=== PATIENT | female | born 1980 | race Caucasian/White ===

== ENCOUNTER 2019-08-12 13:39 | Emergency (ER) | payer OTHER ==
[2019-08-12 14:07] VITALS: BP 111/60; PULSE 69; TEMP 98.1; BMI 27.3
[2019-08-12 14:51] LABS: EPI CELLS 2.8 /HPF (0-5/HPF); HYALINE CASTS 1 /lpf (0-8); URINE APPEARANCE CLEAR; URINE BACTERIA 241.4 /hpf (NEGATIVE); URINE BILIRUBIN NEGATIVE (NEGATIVE); URINE COLOR YELLOW; URINE GLUCOSE (UA) NEGATIVE (NEGATIVE); URINE KETONE 1+ (NEGATIVE); URINE LEUK ESTERASE 2+ (NEGATIVE); URINE NITRITE NEGATIVE (NEGATIVE); URINE PROTEIN NEGATIVE (NEGATIVE); URINE UROBILINOGEN 0.2 mg/dL (0.2-1.0); URINE WBC 11 /hpf (0-5)
[2019-08-12 14:54] LABS: URINE RBC 0-4 /hpf (0-4)
[2019-08-12] MEDS ORDERED: LIDOCAINE 5% TOPICAL PATCH TP ONE (15:00)
[2019-08-12] MEDS ORDERED: ACETAMINOPHEN 325 MG TABLET (FP) PO ONE (15:00)
--- NOTE | 2019-08-12 15:09 | PDOC ---
History of Present Illness - General Chief Complaint: Back Pain Stated Complaint: LOWER BACK PAIN 3M PRGT Time Seen by Provider: 08/12/19 14:46 History Source: Patient Exam Limitations: Clinical Condition - History of Present Illness Initial Comments: 08/12/19 15:04 Patient 13 weeks with no significant past medical history present with complaint of low back pain after housecleaning yesterday and decorating [place] tree in the house. Patient reported pain localized to lower mid back which started as mild pain yesterday has been worsening today. Patient did not take anything for pain. Denies numbness or tingling sensation, nausea or vomiting. Denies urinary frequency, burning with urination or dysuria or hematuria. Denies abdominal pain, vaginal bleeding or discharge. Denies any other symptoms Is this a multiple visit Asthma Patient?: No Timing/Duration: 24 hours Past History - Past Medical History Allergies/Adverse Reactions: Allergies Allergy/AdvReac Type Severity Reaction Status Date / Time No Known Allergies Allergy Verified 08/12/19 14:03 COPD: No - Immunization History Immunization Up to Date: Yes - Psycho Social/Smoking Cessation Hx Smoking History: Never smoked Have you smoked in the past 12 months: No Number of Cigarettes Smoked Daily: 0 Cigars Per Day: 0 Hx Alcohol Use: No Drug/Substance Use Hx: No Substance Use Type: None Review of Systems - Review of Systems Able to Perform ROS?: Yes Is the patient limited Gu[place]ian proficient: No Constitutional: No: Chills, Fever, Malaise, Weakness HEENTM: No: Symptoms Reported, See HPI, Eye Pain, Blurred Vision, Tearing, Recent change in vision, Double Vision, Cataracts, Ear Pain, Ocular Prothesis, Ear Discharge, Nose Pain, Nose Congestion, Tinnitus, Nose Bleeding, Hearing Loss , Throat Pain, Throat Swelling, Mouth Pain, Dental Problems, Difficulty Swallowing, Mouth Swelling, Other Respiratory: No: Symptoms reported, See HPI, Cough, Orthopnea, Shortness of Breath, SOB with Exertion, SOB at Rest, Stridor, Wheezing, Productive cough, Hemoptysis, Other Cardiac (ROS): No: Symptoms Reported, See HPI, Chest Pain, Edema, Irregular Heart Rate, Lightheadedness, Palpitations, Syncope, Chest Tightness, Other ABD/GI: No: Symptoms Reported, See HPI, Blood Streaked Bowels, Constipated, Diarrhea, Nausea, Poor Appetite, Vomiting, Abdominal cramping : No: Symptoms Reported, See HPI, Burning, Dysuria, Discharge, Frequency, Flank Pain, Hematuria, Urgency Musculoskeletal: Yes: Symptoms Reported, See HPI, Back Pain (lower back pain) Integumentary: No: Symptoms Reported Neurological: No: Symptoms reported, Numbness, Paresthesia, Tingling All Other Systems: Reviewed and Negative *Physical Exam - Vital Signs Last Vital Signs Temp Pulse Resp BP Pulse Ox 98.1 F 69 18 111/60 99 08/12/19 14:05 08/12/19 14:05 08/12/19 14:05 08/12/19 14:05 08/12/19 14:05 - Physical Exam General Appearance: Yes: Nourished, Appropriately Dressed. No: Apparent Distress HEENT: positive: [place], Normal ENT Inspection, Normal Voice, Pharynx Normal Neck: positive: Supple Respiratory/Chest: positive: Lungs Clear, Normal Breath Sounds. negative: Respiratory Distress, Accessory Muscle Use Cardiovascular: positive: Regular Rhythm, Regular Rate Gastrointestinal/Abdominal: positive: Normal Bowel Sounds Musculoskeletal: positive: Normal Inspection, Other (mild tenderness over lower lumbosacral of L5-S2. no radiculopathy). negative: CVA Tenderness Extremity: positive: Normal Inspection, Normal Range of Motion Integumentary: positive: Normal Color, Warm Neurologic: positive: Fully Oriented, Alert, Normal Mood/Affect, Normal Response ED Treatment Course - ADDITIONAL ORDERS Additional order review: Laboratory Results 08/12/19 14:15 Urine Color Yellow Urine Appearance Clear Urine pH 7.0 D Ur Specific [place] 1.013 Urine Protein Negative Urine Glucose (UA) Negative Urine Ketones 1+ H Urine Blood Negative Urine Nitrite Negative Urine Bilirubin Negative Urine Urobilinogen 0.2 Ur Leukocyte Esterase 2+ H Urine WBC (Auto) 11 Urine RBC (Auto) 0-4 Urine Casts (Auto) 1 U Epithel Cells (Auto) 2.8 Urine Bacteria (Auto) 241.4 Medical Decision Making - Medical Decision Making 08/12/19 15:05 Patient 13 weeks with no significant past medical history present with complaint of low back pain after housecleaning yesterday and decorating [place] tree in the house. Patient reported pain localized to lower mid back which started as mild pain yesterday has been worsening today. Patient did not take anything for pain. Denies numbness or tingling sensation, nausea or vomiting. Denies urinary frequency, burning with urination or dysuria or hematuria. Denies abdominal pain, vaginal bleeding or discharge. Denies any other symptoms Exam significant for mild tenderness to lower sacrum over L4-S1 otherwise unremarkable exam. No abdominal tenderness. No CVA tenderness. Patient symptoms likely back strain. Tylenol 975 mg p.o. and lidocaine patch ordered for the back pain. Patient stable for discharge with advised to take Tylenol as needed for pain and hot compress with strict follow-up Discharge - Discharge Information Problems reviewed: Yes Clinical Impression/Diagnosis: Lumbago without sciatica Qualifiers: Chronicity: acute Back pain laterality: bilateral Qualified Code(s): M54.5 - Low back pain Condition: Stable Disposition: HOME - Admission No - Follow up/Referral Referrals: Julia Tillman [Primary Care Provider] - - Patient Discharge Instructions Patient Printed Discharge Instructions: DI for Low Back Pain Additional Instructions: Your pain is likely caused by muscle pain. Take Tylenol as needed for pain. Apply hot compress to lower back 2-3 times a day as needed for pain. Come back to emergency room if worsening pain with numbness and tingling sensation - Post Discharge Activity
[2019-08-12] MEDS ORDERED: LIDOCAINE 5% TOPICAL PATCH ONE (15:14)
[2019-08-12] MEDS ORDERED: ACETAMINOPHEN 325 MG TABLET (FP) ONE (15:14)
== END 2019-08-12 15:20 | disposition home or self-care (01) ==
LOC: JER 13:39 → JERFT 13:39
DX: O99.89 Other specified diseases and conditions complicating pregnancy, childbirth and the puerperium (principal); M54.5 Low back pain; Z3A.13 13 weeks gestation of pregnancy
CPT/HCPCS: 81003; 87086; 99282-25

== ENCOUNTER 2022-12-12 20:51 | Emergency (ER) | payer OTHER ==
[2022-12-12 20:57] VITALS: BP 111/65; PULSE 64; RESP 18; TEMP 98; BMI 25.4
[2022-12-12] MEDS ORDERED: KETOROLAC TROMETHAMINE 30 MG/1 ML VIAL IM ONE (22:58)
[2022-12-12] MEDS ORDERED: DEXAMETHASONE SOD PHOSPHATE 10 MG/1 ML VIAL IM ONE (22:58)
[2022-12-12] MEDS ORDERED: DEXAMETHASONE SOD PHOSPHATE 10 MG/1 ML VIAL ONE (23:06)
[2022-12-12] MEDS ORDERED: KETOROLAC TROMETHAMINE 30 MG/1 ML VIAL ONE (23:06)
== END 2022-12-12 23:15 | disposition home or self-care (01) ==
LOC: JERFT 20:51
PROC: 3E0233Z Introduction of Anti-inflammatory into Muscle, Percutaneous Approach (ICD-10-PCS; principal; 2022-12-12)
PROC: 3E0233Z Introduction of Anti-inflammatory into Muscle, Percutaneous Approach (ICD-10-PCS; 2022-12-12)
DX: J02.9 Acute pharyngitis, unspecified (principal); R51.9 Headache, unspecified
CPT/HCPCS: 87651; 99284-25; J1100